=== PATIENT | female | born 1980 | race Caucasian/White ===

== ENCOUNTER 2019-11-04 12:00 | Emergency (ER) | payer SELFPAY ==
[2019-11-04] MEDS ORDERED: ACETAMINOPHEN EXTRA STRENGTH 500 MG TABLET ONE (12:27)
[2019-11-04] MEDS ORDERED: ONDANSETRON ODT 4 MG TAB ONE (12:48)
[2019-11-04] MEDS ORDERED: MORPHINE SULFATE 5 MG/ML VIAL ONE (12:49)
== END 2019-11-04 15:34 | disposition home or self-care (01) ==
LOC: EDH 12:00
DX: S82.851A Displaced trimalleolar fracture of right lower leg, initial encounter for closed fracture (principal); Z88.0 Allergy status to penicillin; Z72.0 Tobacco use; W22.8XXA Striking against or struck by other objects, initial encounter; Y93.01 Activity, walking, marching and hiking; Y92.89 Other specified places as the place of occurrence of the external cause; Y99.8 Other external cause status
CPT/HCPCS: 29515; 73610; 73700; 96372; 99284; J2270

== ENCOUNTER 2019-11-08 12:17 | Emergency (ER) | payer SELFPAY | END 2019-11-08 13:47 | disposition home or self-care (01) | LOC: EDH 12:17 | DX: M25.571 Pain in right ankle and joints of right foot (principal); Z88.0 Allergy status to penicillin; Z72.0 Tobacco use | CPT/HCPCS: 99281 ==

== ENCOUNTER 2025-03-03 13:52 | Emergency (ER) | payer SELFPAY ==
[~2025-03-03] VITALS: Ht 162.6 cm; Wt 83.9 kg
[2025-03-03] MEDS: HYDROcodone/APAP 5/325 1 TAB TABLET PO STA (14:22)
[2025-03-03] MEDS: ketOROlac 15MG/ML VIAL (15MG/ML) IM STA (14:22)
[2025-03-03] MEDS: dexaMETHasone SOD PHOSPHATE 4 MG/ML 1ML VIAL IM STA (14:23)
[2025-03-03] MEDS ORDERED: AMOX1TAB16 PO (15:23)
--- NOTE | 2025-03-03 15:24 | ERN ---
ED Note History of Present Illness Stated Complaint: TOOTH PAIN Chief Complaint: Tooth Ache/Pain Time Seen by MD: 14:03 Time Seen by Midlevel: 14:06 Dictation: 44-year-old female coming in with complaints of tooth pain that started Thursday. Patient states she thinks she cracked her wisdom tooth on her right side. Patient states since then she has been having pain. States she has had subjective low-grade fever, no nausea no vomiting. Denies any medical history. Patient states she has not appointment with the dentist on Thursday. Allergies: Coded Allergies: No Known Drug Allergies (Verified Allergy, Unknown, 01/17/14) Home Meds Active Scripts Amoxicillin/Potassium Clav (Amox Tr-K Clv 875-125 mg Tab) 875 Mg-125 Mg Tablet, 1 EACH PO BID for 7 Days, #14 TAB 0 Refills Prov:SD MORENO HYSTER MACHINE OPERATOR 03/03/25 Past Medical History Past Medical History: No Pertinent History Surgical History: BTL Surgical History Other: UMBILICAL HERNIA, RT ANKLE Review of System Dictation Constitutional: Negative for fever,chills, and weight loss Eyes: Negative for injury, pain,redness, and discharge ENT: Negative for injury,pain or swelling, complaining of right lower molar pain Cardiovascular: Negative for chest pain, palpitations, and edema Respiratory: Negative for shortness of breath, cough, and wheezing, Abdomen/GI: Negative for abdominal pain, nausea, vomiting, diarrhea, and constipation Back: Negative for injury and pain : Negative for injury, bleeding and discharge MS/Extremity: Negative for injury and deformity Skin: Negative for rash, and discoloration Neuro: Negative for headache, weakness, numbness, tingling, and seizure Psych: Negative for suicide ideation, homicidal ideation, and hallucinations Review of Systems: was completed Initial Vital Sign VS Vital Signs Date Time Temp Pulse Resp B/P (MAP) Pulse Ox O2 Delivery O2 Flow Rate FiO2 03/03/25 13:54 98.6 64 18 164/100 96 Room Air 0 03/03/25 14:11 21 Physical Exam Dictation General: awake, alert, NAD Head/Face: Normocephalic, atraumatic Eyes: PERRL, EOMI, vision at baseline ENT: oral cavity clear, TMs clear, no signs of infection, minimal swelling noted on the cheek, no lymphadenopathy Neck: Trachea midline, supple, no nuchal rigidity Cardiovascular: RRR, normal S1/S2, No MRGs, no JVD Respiratory: CTAB, no respiratory distress, No rales or wheezes Abdomen: Soft, non-tender, non-distended, normal bowel sounds, no guarding or rebound. Skin: Warm, dry, normal turgor, no rash MS/Extremity: Pulses equal, no cyanosis, neurovascular intact, FROM Neuro: COAx4, GCS 15, strength 5/5, CN 2-12 intact, normal cerebellar exam, normal gait, Psych: Normal behavior, mood, and affect normal Results (Laboratory/Radiology) Labs Reviewed?: Yes ED Course ED Course Orders Procedure Category Date Status Time Dexamethasone 4mg/Ml PHA 03/03/25 Complete 1ml Vial (Dexametha 14:12 Ketorolac PHA 03/03/25 Complete Tromethamine 15mg/Ml 14:12 Hydrocodone/Apap PHA 03/03/25 Complete 5/325 ([place] 5/325mg) 14:12 Current Medications Medications (Trade) Dose Ordered Sig/Lelo Route PRN Reason Start Time Stop Time Status Last Admin Dose Admin Acetaminophen/ Hydrocodone Bitart (NORco 5/325MG) 1 tab ONCE STAT PO 03/03/25 14:12 03/03/25 14:15 DC 03/03/25 14:22 Dexamethasone Sodium Phosphate (dexaMETHasone 4MG/ML 1ML VIAL) 6 mg ONCE STAT IM 03/03/25 14:12 03/03/25 14:15 DC 03/03/25 14:23 Ketorolac Tromethamine (toRADol) 15 mg ONCE STAT IM 03/03/25 14:12 03/03/25 14:15 DC 03/03/25 14:22 Vital Signs Date Time Temp Pulse Resp B/P (MAP) Pulse Ox O2 Delivery O2 Flow Rate FiO2 03/03/25 15:35 98.6 65 18 138/72 96 Room Air* 0 21 03/03/25 14:11 98.6 60 18 159/78 96 Room Air* 0 21 03/03/25 13:54 98.6 64 18 164/100 96 Room Air 0 Medical Decision Making MDM MDM: 44-year-old female coming in with complaints of tooth pain that started Thursday. Patient states she thinks she cracked her wisdom tooth on her right side. Patient states since then she has been having pain. States she has had subjective low-grade fever, no nausea no vomiting. Denies any medical hist ory. Patient states she has not appointment with the dentist on Thursday. Patient is given pain medication in the emergency room and we will discharge with antibiotics. Discussed with the patient that she needs to completely does not have antibiotics and follow up with her dentist for further evaluation. Discussed with the patient on signs and symptoms to return back to the ER, p atient verbalized understanding, answered all questions. Differential diagnosis: Cellulitis, tooth abscess, chest pain, tooth caries Rationale: Tests considered and ordered secondary to shared decision making include: Previous outside records reviewed: Old ER visits. Risk of complication and/or morbidity or mortality of patient management: None Medications-Per medication reconciliation Need for hospitalization: Patient does not meet criteria for hospitalization. Need for emergency major/minor surgery: No There are no social concerns with this patient. Prescription drug management Prescriptions will include symptomatic care Patient's prior external medical records from other ER visits were reviewed by me as indicated. Prior testing and results from previous visits were reviewed. Prior tests were taken into account with medical decision making and resource utilization, independent historian/historians were used to obtain complete medical history. I independently interpreted the test that were performed, results were reviewed by me and considered findings on radiology if ordered. Medical management and examination interpretation discussions were had by me with other qualified healthcare professionals as indicated for the patient's care. DX & DISP Disposition: Discharge Departure Impression: Primary Impression: Pain of molar Condition: Stable Scripts Amoxicillin/Potassium Clav (Amox Tr-K Clv 875-125 mg Tab) 875 Mg-125 Mg Tablet 1 EACH PO BID for 7 Days, #14 TAB 0 Refills Prov: SD MORENO NP 03/03/25 Additional Instructions: Take the antibiotics as prescribed. Follow up with a dentist as scheduled. Take for pain [id number] Tylenol or Motrin. The medications that I gave you today it is a steroid and she had last with the next 3-4 days. Referrals: SELF,REFERRAL (PCP) Time of Disposition: 15:24 I have reviewed the case, and I agree with, Diagnosis and Plan SD MORENO NP Mar 03, 2025 15:24 FIFI FISCHER DO Mar 06, 2025 04:13
[2025-03-03 15:35] VITALS: BP 138/72; PULSE 65; RESP 18; TEMP 98.6; O2SAT 96
== END 2025-03-03 15:41 | disposition home or self-care (01) ==
LOC: EDH 13:52
DX: K08.89 Other specified disorders of teeth and supporting structures (principal); Z98.51 Tubal ligation status
CPT/HCPCS: 99284; 96372 ×2; J1100; J1885